=== PATIENT | male | born 1955 | race Caucasian/White ===

== ENCOUNTER 2023-12-18 17:15 | Emergency (ER) | payer BC, MEDICARE ==
[~2023-12-18] VITALS: Ht 182.9 cm; Wt 86.0 kg
[2023-12-18 17:24] VITALS: O2SAT 98
[2023-12-18 17:35] VITALS: BP 120/77; PULSE 71; RESP 16; TEMP 37.00296; O2SAT 98
[2023-12-18] MEDS: LACTATED RINGERS 1,000 ML IV SCH (19:28)
[2023-12-18 19:32] LABS: BASOPHILS % 0.4 % (0.0-2.0); HEMOGLOBIN. 16.1 g/dL (14.0-18.0); LYMPHOCYTES % 10.4 % (20.0-50.0); MEAN CORPUSCULAR HEMOGLOBIN 31.8 pg (28.0-32.0); MEAN CORPUSCULAR HGB CONC 33.5 g/dL (31.0-37.0); MEAN CORPUSCULAR VOLUME 94.6 fL (80.0-94.0); MONOCYTES % 6.1 % (2.0-8.0); NEUTROPHILS % 82.1 % (40.0-76.0); PLATELET 216 x1000/uL (130-400); RED BLOOD CELL COUNT 5.07 mill/uL (4.7-6.1); WHITE BLOOD COUNT 9.8 x1000/uL (4.5-11.0)
[2023-12-18 19:34] LABS: CHLORIDE 107 mEq/L (98-107); POTASSIUM 4.9 mEq/L (3.5-5.1); SODIUM 136 mEq/L (136-145)
[2023-12-18 19:35] LABS: CARBON DIOXIDE 25 mEq/L (21-32)
[2023-12-18 19:36] LABS: CALCIUM 9.5 mg/dL (8.7-10.4)
[2023-12-18 19:40] LABS: CREATININE 1.3 mg/dL (0.6-1.3); GLUCOSE 93 mg/dL (70-105)
[2023-12-18 19:41] LABS: UREA NITROGEN BLOOD 17 mg/dL (9-23)
[2023-12-18 19:42] LABS: ALANINE AMINOTRANSFERASE 20 IU/L (10-49)
[2023-12-18 19:43] LABS: ALBUMIN 4.5 g/dL (3.2-4.8); ASPARTATE AMINOTRANSFERASE 21 IU/L (<34); BILIRUBIN TOTAL 0.8 mg/dL (0.1-1.0); PROTEIN TOTAL 6.8 g/dL (6.0-8.3); TROPONIN I HIGH SENSITIVITY < 4 ng/L (3.0-53)
== END 2023-12-18 20:00 | disposition left against medical advice (07) ==
LOC: ER 17:15 → EDBEDREQTM 18:41 → EDBEDREQ 18:41 → ER 20:00 → CANBEDREQ 21:16
DX: R55 Syncope and collapse (principal); R19.7 Diarrhea, unspecified; R10.32 Left lower quadrant pain; I10 Essential (primary) hypertension
CPT/HCPCS: 80053; 83690; 85025; 84484; 36415; 71045; 93005; 96360; 99285; Z7610